=== PATIENT | female | born 1985 | race Caucasian/White ===

== ENCOUNTER 2018-03-14 08:48 | Emergency (ER) | payer MEDICAID ==
[~2018-03-14] VITALS: Ht 167.6 cm; Wt 117.0 kg
[2018-03-14 08:57] VITALS: BP 146/98
== END 2018-03-14 11:30 | disposition home or self-care (01) ==
LOC: ER 09:03
DX: N64.52 Nipple discharge (principal); N64.4 Mastodynia; F17.200 Nicotine dependence, unspecified, uncomplicated; Z98.890 Other specified postprocedural states; Z98.51 Tubal ligation status
CPT/HCPCS: 99282

== ENCOUNTER 2021-10-07 18:17 | Emergency (ER) | payer MEDICAID ==
[~2021-10-07] VITALS: Ht 170.2 cm; Wt 118.0 kg
[2021-10-07 18:19] VITALS: BP 126/99
[2021-10-07] MEDS ORDERED: CEPH500T MT (19:50)
== END 2021-10-07 20:04 | disposition home or self-care (01) ==
LOC: ER 18:24
DX: K61.0 Anal abscess (principal); Z98.890 Other specified postprocedural states; Z98.51 Tubal ligation status
CPT/HCPCS: 99281

== ENCOUNTER 2022-05-22 09:12 | Emergency (ER) | payer MEDICAID, OTHER ==
[~2022-05-22] VITALS: Ht 170.2 cm; Wt 80.0 kg
[~2022-05-22 09:12] MED LIST: CEPH500T MT
[2022-05-22 09:25] VITALS: BP 140/100
[2022-05-22] MEDS ORDERED: ACETAMINOPHEN 325MG TABLET PO STA (11:40)
[2022-05-22 12:16] LABS: BASOPHILS % 0.6 % (0.0-2.0); EOSINOPHILS % 4.2 % (0.0-5.0); HEMATOCRIT. 41.4 % (36.0-48.0); HEMOGLOBIN. 13.9 g/dL (12.0-16.0); MEAN CORPUSCULAR HEMOGLOBIN 28.3 pg (28.0-32.0); MEAN CORPUSCULAR VOLUME 84.4 fL (81.0-99.0); MEAN PLATELET VOLUME 7.3 fl (7.4-10.4); MONOCYTES % 8.6 % (2.0-8.0); NEUTROPHILS % 54.6 % (40.0-76.0); PLATELET 367 x1000/uL (130-400); RED CELL DISTRIBUTION WIDTH 13.8 % (11.6-14.6)
[2022-05-22 12:26] LABS: CHLORIDE 105 mEq/L (98-107)
[2022-05-22 13:02] LABS: CLARITY URINE CLEAR (CLEAR); COLOR URINE YELLOW (YELLOW); KETONES URINE 1+ (NEGATIVE); LEUKOCYTE ESTERASE URINE NEGATIVE (NEGATIVE); NITRITE URINE NEGATIVE (NEGATIVE); OCCULT BLOOD URINE NEGATIVE (NEGATIVE); PH URINE 5.5 (4.5-8.0); PROTEIN URINE NEGATIVE (NEGATIVE); SPECIFIC GRAVITY URINE 1.029 (1.005-1.030); UROBILINOGEN URINE 0.2 E.U./dL (0.2-1.0)
== END 2022-05-22 14:16 | disposition home or self-care (01) ==
LOC: ER 09:12
DX: R19.7 Diarrhea, unspecified (principal); Z98.51 Tubal ligation status; Z98.890 Other specified postprocedural states
CPT/HCPCS: 36415; 80053; 81003; 81025; 85025; 99283